=== PATIENT | male | born 1940 | race Caucasian/White ===

== ENCOUNTER 2022-09-09 01:56 | Inpatient (IN) | payer MEDICARE ==
[~2022-09-09] VITALS: Ht 177.8 cm; Wt 109.1 kg
[2022-09-09 02:26] LABS: BASOPHILS ABSOLUTE AUTO 0.06 K/mm3 (0.00-0.23); BASOPHILS PERCENT AUTO 1 % (0-2); EOSINOPHILS ABSOLUTE AUTO 0.03 K/mm3 (0.00-0.68); EOSINOPHILS PERCENT AUTO 1 % (0-6); Hematocrit 35.1 % (37.0-53.0); IMMATURE GRAN ABSOLUTE AUTO 0.06 K/mm3 (0.00-0.10); IMMATURE GRAN PERCENT AUTO 1 % (0-1); LYMPHOCYTES ABSOLUTE AUTO 1.61 K/mm3 (0.84-5.20); LYMPHOCYTES PERCENT AUTO 25 % (21-46); MONOCYTES ABSOLUTE AUTO 0.43 K/mm3 (0.16-1.47); MONOCYTES PERCENT AUTO 7 % (4-13); Mean Corpuscular HGB 33.7 pg (26.0-34.0); Mean Corpuscular HGB Conc 31.3 g/dL (31.5-36.5); Mean Corpuscular Volume 108 fL (80-100); Mean Platelet Volume 9.4 fL (9.1-12.4); NEUTROPHILS ABSOLUTE AUTO 4.37 K/mm3 (1.96-9.15); NEUTROPHILS PERCENT AUTO 67 % (41-73); Platelet Count 148 K/mm3 (150-400); RDW Standard Deviation 55.8 fL (35.1-46.3); Red Blood Cell Count 3.26 M/mm3 (4.30-5.90); White Blood Cell Count 6.56 K/mm3 (4.00-11.30)
[2022-09-09 02:45] LABS: Albumin, Blood 3.8 g/dL (3.4-5.0); Bun/Creatinine Ratio 13.2 (12.0-20.0); Calcium, Blood 8.7 mg/dL (8.5-10.1); Creatinine, Blood 1.97 mg/dL (0.60-1.20); Potassium, Blood 3.9 mmol/L (3.5-5.5); Total Protein, Blood 7.8 g/dL (6.4-8.2)
[2022-09-09 03:30] LABS: pH Blood Venous 7.36 (7.34-7.37)
[2022-09-09 03:31] LABS: Base Excess Venous 1.8 mmol/L; Bicarbonate Venous 25.5 mmol/L (24.0-30.0); PCO2 Venous 48 mmHg (38-42)
[2022-09-09 04:28] LABS: Source, Urine Straight Cath
[2022-09-09 04:32] LABS: Bilirubin, Urine Neg (Neg); Blood, Urine 1+ (Neg); Glucose Qualitative, Urine Neg (Neg); Ketones, Urine Neg (Neg); Leukocyte Esterase, Urine 3+ (Neg); Nitrite, Urine Neg (Neg); Protein, Urine 2+ (Neg); Urobilinogen, Urine NORM (Normal)
[2022-09-09 04:48] LABS: Appearance, Urine Hazy (Clear); Color, Urine Yellow (P-Yellow)
[2022-09-09 05:10] LABS: Bacteria Mod /hpf; Squamous Epithelial Cells Few /hpf (Few); White Blood Cells, Urine 50-100 /hpf (0-5)
[2022-09-09] MEDS ORDERED: ATEN50 PO (05:24)
[2022-09-09] MEDS ORDERED: FURO40 PO (05:25)
[2022-09-09] MEDS ORDERED: AMLODIPINE BESY10 MG PO (05:25)
[2022-09-09] MEDS ORDERED: CLOP75 PO (05:26)
[2022-09-09] MEDS ORDERED: Flomax0.4 MG (05:27)
--- NOTE | 2022-09-09 06:08 | NUR ---
Assumed care of pt at 0518 as an ER admit. A/Ox4, cooperative with care. Maintains over 95% on bipap 07/12 30-50%. LS clear on top and dim at bases. BP WNL. SR with BBB on tele 60's. Denies CP/pressure. Contacted doctor regarding bump in troponin from previous result, doctor will order heparin gtt and defer cardio consult to daysinft. Will report to dayshift RN.
[2022-09-09 06:18] LABS: Albumin, Blood 3.7 g/dL (3.4-5.0); Anion Gap 6 mmol/L (6-16); Blood Urea Nitrogen 29 mg/dL (8-24); Bun/Creatinine Ratio 15.7 (12.0-20.0); CO2, Blood 29 mmol/L (21-32); Calcium, Blood 8.8 mg/dL (8.5-10.1); Chloride, Blood 108 mmol/L (98-108); Creatinine, Blood 1.85 mg/dL (0.60-1.20); Glomerular Filtration Rate 36 (60-); Glucose, Blood 151 mg/dL (70-99); Phosphorus, Blood 2.8 mg/dL (2.5-4.9); Potassium, Blood 4.1 mmol/L (3.5-5.5); Sodium, Blood 143 mmol/L (136-145)
[2022-09-09 07:25] VITALS: BP 135/59
[2022-09-09 07:25] LABS: Anti-Xa UFH, PHA Monitoring <0.10 IU/mL; International Normalized Ratio 1.16; Prothrombin Time Results 12.1 Sec (9.7-11.5)
[2022-09-09 12:05] VITALS: BP 109/75
--- NOTE | 2022-09-09 15:14 | NUR ---
UPDATE: TROPONIN TRENDING UPWARDS, LOCOMOTIVE REPAIRER DIESEL NOTIFIED, POSSIBE ANGIOGRAM IN AM. NPO AT MIDNIGHT.
[2022-09-09 16:01] VITALS: BP 129/60
--- NOTE | 2022-09-09 17:02 | NUR ---
SHIFT SUMMARY: PT ALERT AND ORIENTED X4, ABLE TO FOLLOW COMMANDS AND MAKE NEEDS KNOWN. BP AND HR STABLE, AFEBRILE, PT TITRATED TO 2L NC THIS AFTERNOON, RESPONDING WELL. BIPAP REMAINS AT BEDSIDE FOR NOC. PT WITH TRENDING TROPONIN PEAKING [phone]. CARDIOLOGY CONSULTED, PLAN FOR POSSIBLE ANGIOGRAM IN AM. NPO AT MIDNIGHT. DENIES CP/PRESSURE/SOB THROUGHOUT THE DAY. PT DIURESING THIS SHIFT, ABLE TO USE URINAL IND AT BEDSIDE. NO BM. MEDICAL RECORDS RECEIVED FROM [facility], SEE PAPER CHART. AT BEDSIDE THIS AFTERNOON AND UPDATED ON PT CARE WITH PERMISSION. BED IN LOW, PARATRANSIT DRIVER AT BEDSIDE, CALL LIGHT IN REACH, WILL REPORT TO ONCOMING RN.
--- NOTE | 2022-09-09 20:22 | NUR ---
ASSUMPTION OF CARE: PATIENT IS ALERT AN DORIENTED FIRST SET OF VITALS STABLE. PATIETN IN NO SIGN OF CARDIAC OR RESPIRATORY DISTRESS, WILL CONTINUE TO MONITOR UNTIL SHIFT CHNAG.E PATIENT AND THIS rn HAVE NO CONCERNS AT THIS TIME. NPO AT 0000. SPO2 >92% ON NC. PATIENT DENIES NEED FOR REPOSITION. TELE IN PLACE.
--- NOTE | 2022-09-09 21:05 | NUR ---
PATIENT SWTICHED TO CPAP BY RT. 8 AT 30%. WILL CONTINUE TO MONITOR SPO2 > 95%. PATIENT TYPICALLY WEARS CPAP AT HOME
[2022-09-10] VITALS (7 sets, daily range): BP systolic 110–131; BP diastolic 55–67
[2022-09-10 03:58] LABS: Hematocrit 31.9 % (37.0-53.0); Hemoglobin 10.1 g/dL (13.5-17.5); Mean Platelet Volume 9.2 fL (9.1-12.4); Platelet Count 165 K/mm3 (150-400)
--- NOTE | 2022-09-10 06:13 | NUR ---
HEPARIN RAN THROUGHT THE NIGHT ONLY CHANGE FROM ASSUMPTION OF CARE IS OCC PATIENTS HEART RATE WOULD DROP A BEAT AND ELECTRONIC TELE READ WOULD BE IN THE UPPER 40'S. PATIENT ASYMPTOMATIC, ENDORSING HE IS SLEEPING WELL. WILL CONTINUE TO MONITOR UNTIL SHIFT CHANGE. NO EPISODES OF CHEST PAIN/PRESSURE OR SOB SHIFT CHANGE.
[2022-09-10 07:42] LABS: BASOPHILS ABSOLUTE AUTO 0.01 K/mm3 (0.00-0.23); BASOPHILS PERCENT AUTO 0 % (0-2); EOSINOPHILS PERCENT AUTO 0 % (0-6); Hematocrit 31.5 % (37.0-53.0); Hemoglobin 10.2 g/dL (13.5-17.5); IMMATURE GRAN ABSOLUTE AUTO 0.05 K/mm3 (0.00-0.10); IMMATURE GRAN PERCENT AUTO 1 % (0-1); LYMPHOCYTES ABSOLUTE AUTO 0.59 K/mm3 (0.84-5.20); LYMPHOCYTES PERCENT AUTO 9 % (21-46); MONOCYTES ABSOLUTE AUTO 0.44 K/mm3 (0.16-1.47); MONOCYTES PERCENT AUTO 7 % (4-13); Mean Corpuscular HGB 33.4 pg (26.0-34.0); Mean Corpuscular HGB Conc 32.4 g/dL (31.5-36.5); Mean Platelet Volume 9.4 fL (9.1-12.4); NEUTROPHILS ABSOLUTE AUTO 5.54 K/mm3 (1.96-9.15); NEUTROPHILS PERCENT AUTO 84 % (41-73); Platelet Count 159 K/mm3 (150-400); RDW Coefficient Variation 13.8 % (11.7-14.2); RDW Standard Deviation 52.6 fL (35.1-46.3); Red Blood Cell Count 3.05 M/mm3 (4.30-5.90); White Blood Cell Count 6.63 K/mm3 (4.00-11.30)
[2022-09-10 07:47] LABS: Mean Corpuscular Volume 103 fL (80-100)
[2022-09-10 07:56] LABS: Bun/Creatinine Ratio 28.1 (12.0-20.0); Calcium, Blood 8.9 mg/dL (8.5-10.1); Creatinine, Blood 1.39 mg/dL (0.60-1.20); Potassium, Blood 3.8 mmol/L (3.5-5.5)
--- NOTE | 2022-09-10 09:43 | NUR ---
UPDATE: FOREST WORKER IN THIS AM, NO ANGIOGRAM TODAY. PT GIVEN BREAKFAST. HEPARIN REMAINS GTT IN R AC.
--- NOTE | 2022-09-10 17:15 | NUR ---
SHIFT SUMMARY: PT REMAINS ALERT AND ORIENTED X4, ABLE TO FOLLOW COMMANDS AND MAKE NEEDS KNOWN. BP AND HR STABLE. PT DENIES CP/PRESSURE/SOB THROUGHOUT THE DAY. AFEBRILE. PT TITRATED TO ROOM AIR THIS AM SATS >90% AT REST, DESATS WITH ACTIVITY. HEPARIN D/C THIS AFTERNOON. NS GTT @75ML/HR IN RAC. IN AT BEDSIDE THIS AFTERNOON, UPDATED ON PT CARE. PT WANTING TO D/C IN AM. BED IN LOW, CALL LIGHT IN REACH, WILL REPORT TO ONCOMING RN
--- NOTE | 2022-09-10 17:39 | NUR ---
IGNITION RISK: PATIENT EDUCATED ON IGNITION SOURCES AND RISK OF INJURY WHILE OXYGEN IS IN USE. PT DENIES SMOKING AND VERBALIZE UNDERSTANDING.
--- NOTE | 2022-09-10 22:11 | NUR ---
ASSUMPTION OF CARE: ONLY CHANGESS FROM PREVIOUS SHIFT ARE PATIENT IS ON RA, POTENTIAL DISCHARGE TOMORROW. PATIENT STILL DENIES CHEST PAIN PRESSURE OR SOB. IS AGREEABLE TO DISCHARGE TOMORROW, DID ENDORSE THAT HE BELIEVES IT IS ONLY THE INITIAL CONSULT FOR [facility] PLACEMENT, AND NOT AN APPOINTMENT TO BE PLACED. WILL PASS TO DAY SHIFT, NO OTHER CONCERNS FROM EITHER PATIENT OR THIS RN. WILL CONTINUE TO MONITOR UNITL SHIFT CHANGE.
[2022-09-11 03:05] VITALS: BP 155/66
--- NOTE | 2022-09-11 04:02 | NUR ---
END OF SHIFT: RECOMMEND PATIENT HAVE ANOTHER SLEEP STUDY PREFORMED THE PRESSURE SUPPORT AND NO O2 IN HIS CPAP COULD POTENTIALLY BE INCORRECT. INFORMED PATIENT, NO CHANGE FROM ASSUMPTION, STILL CANIDATE FOR DISCHARGE, WILL CONTINUE TO MONITORU UNTIL SHIFT CHANGE. DENIES CHEST PAIN PRESSURE OR SOB.
[2022-09-11 04:05] LABS: BASOPHILS ABSOLUTE AUTO 0.01 K/mm3 (0.00-0.23); BASOPHILS PERCENT AUTO 0 % (0-2); EOSINOPHILS PERCENT AUTO 0 % (0-6); Hematocrit 32.7 % (37.0-53.0); Hemoglobin 10.2 g/dL (13.5-17.5); IMMATURE GRAN ABSOLUTE AUTO 0.05 K/mm3 (0.00-0.10); IMMATURE GRAN PERCENT AUTO 1 % (0-1); LYMPHOCYTES ABSOLUTE AUTO 1.06 K/mm3 (0.84-5.20); LYMPHOCYTES PERCENT AUTO 20 % (21-46); MONOCYTES ABSOLUTE AUTO 0.42 K/mm3 (0.16-1.47); MONOCYTES PERCENT AUTO 8 % (4-13); Mean Corpuscular HGB 33.1 pg (26.0-34.0); Mean Corpuscular HGB Conc 31.2 g/dL (31.5-36.5); Mean Corpuscular Volume 106 fL (80-100); Mean Platelet Volume 9.5 fL (9.1-12.4); NEUTROPHILS ABSOLUTE AUTO 3.76 K/mm3 (1.96-9.15); NEUTROPHILS PERCENT AUTO 71 % (41-73); Platelet Count 117 K/mm3 (150-400); RDW Coefficient Variation 14.2 % (11.7-14.2); RDW Standard Deviation 55.8 fL (35.1-46.3); Red Blood Cell Count 3.08 M/mm3 (4.30-5.90)
[2022-09-11 04:43] LABS: Albumin, Blood 3.5 g/dL (3.4-5.0); Bilirubin, Total 0.6 mg/dL (0.1-1.0); Bun/Creatinine Ratio 31.6 (12.0-20.0); Calcium, Blood 9.1 mg/dL (8.5-10.1); Creatinine, Blood 1.17 mg/dL (0.60-1.20); Globulin, Blood 3.6 g/dL (2.2-4.0); Potassium, Blood 3.6 mmol/L (3.5-5.5); Total Protein, Blood 7.1 g/dL (6.4-8.2)
[2022-09-11 08:24] VITALS: BP 144/57
--- NOTE | 2022-09-11 09:53 | NUR ---
MARY BETH HAS BEEN INDEPENDENT IN ROOM AND WITHOUT COMPLAINTS SINCE ASSUMING CARE AT 0700. HE HAS BEEN SEEN BY AND , QUESTIONS HAVE BEEN ANSWERED AND INFORMATION RELAYED TO HIS UPON HER ARRIVAL. AWAITING PAPERWORK FOR DISCHARGE THEY ARE PLANNING TO RETURN TO [place] FOR F/U AT [facility] FOR [facility].
[2022-09-11] MEDS ORDERED: ATOR80 PO (10:21)
[2022-09-11] MEDS ORDERED: TORSE20 PO (10:22)
--- NOTE | 2022-09-11 10:59 | NUR ---
MARY BETH DISCHARGED VIA WHEELCHAIR TO CARE OF WHO IS DRIVING. PT GIVEN ALL INSTRUCTIONS, VERBAL AND WRITTEN, VERIFIED NEW PRESCRIPTIONS. PT REMAINED FREE OF PAIN/DISCOMFORT OR SHORTNESS OF BREATH.
== END 2022-09-11 11:00 | disposition home or self-care (01) | DRG 189 ==
LOC: ER 01:56 → PCU 04:49
PROVIDERS: Emergency Medicine; Family Medicine; ADMIT Student in an Organized Health Care Education/Training Program
PROC: 5A09357 Assistance with Respiratory Ventilation, Less than 24 Consecutive Hours, Continuous Positive Airway Pressure (ICD-10-PCS; principal; 2022-09-11)
DX: J96.01 Acute respiratory failure with hypoxia (principal); J18.9 Pneumonia, unspecified organism; I50.33 Acute on chronic diastolic (congestive) heart failure; I21.A1 Myocardial infarction type 2; J90 Pleural effusion, not elsewhere classified; I13.0 Hypertensive heart and chronic kidney disease with heart failure and stage 1 through stage 4 chronic kidney disease, or unspecified chronic kidney disease; J96.02 Acute respiratory failure with hypercapnia; I35.0 Nonrheumatic aortic (valve) stenosis; R77.8 Other specified abnormalities of plasma proteins; I25.10 Atherosclerotic heart disease of native coronary artery without angina pectoris; N18.30 Chronic kidney disease, stage 3 unspecified; F10.90 Alcohol use, unspecified, uncomplicated; R73.9 Hyperglycemia, unspecified; B96.20 Unspecified Escherichia coli [E. coli] as the cause of diseases classified elsewhere; R94.31 Abnormal electrocardiogram [ECG] [EKG]; D53.9 Nutritional anemia, unspecified; D63.1 Anemia in chronic kidney disease; D69.6 Thrombocytopenia, unspecified; Z96.649 Presence of unspecified artificial hip joint; Z87.891 Personal history of nicotine dependence; Z88.8 Allergy status to other drugs, medicaments and biological substances; Z79.899 Other long term (current) drug therapy; Z79.01 Long term (current) use of anticoagulants
CPT/HCPCS: 36415; 51701; 71045; 76770; 80048; 80053; 80069; 81001; 82607; 82746; 82803; 83880; 84484; 85014; 85018; 85025; 85049; 85520; 85610; 87077; 87086; 87186; 93005; 93010; 93308; 93321; 94660; 94762; 96374-59; 99285-25; A9270; J0696; J1644; J1650; J1940; J2930; J7040